=== PATIENT | male | born 1960 | race Caucasian/White ===

== ENCOUNTER 2018-01-27 17:13 | Emergency (ER) | payer BC ==
[2018-01-27 17:20] VITALS: RESP 18
[2018-01-27 17:52] LABS: Basophils % (A) 0 %; Eosinophils % (A) 1 %; HCT 46.1 % (39.0-53.0); HGB 15.5 gm/dL (13.0-17.5); Lymphocytes # (A) 1.4 k/uL (1.0-4.8); Lymphocytes % (A) 24 %; MCH 28.3 pg (25.0-35.0); MCHC 33.7 g/dL (31.0-37.0); MCV 84.1 fL (80.0-100.0); Mean Platelet Volume 6.9; Monocytes # (A) 0.3 k/uL (0-1.0); Monocytes % (A) 5 %; Neutrophils # (A) 4.1 k/uL (1.3-7.7); Neutrophils % (A) 69 %; Platelet Count 243 k/uL (150-450); RBC 5.49 m/uL (4.30-5.90); RDW 12.5 % (11.5-15.5); WBC 5.9 k/uL (3.8-10.6)
[2018-01-27 17:53] LABS: Partial Thromboplastin Time 22.6 sec (22.0-30.0)
[2018-01-27] MEDS ORDERED: RX INFO: IV CONTRAST WAS GIVEN 1 EACH MISC MISCELLANE PRN (17:55)
--- NOTE | 2018-01-27 17:55 | ED ---
General Adult HPI - General Chief complaint: Chest Pain Stated complaint: Chest Pain, High blood pressure Time Seen by Provider: 01/27/18 17:45 Source: patient, RN notes reviewed, old records reviewed Mode of arrival: wheelchair Limitations: no limitations - History of Present Illness Initial comments: This is a 57-year-old male to the ER for evaluation of chest pain. Patient's chest pain 1 week anterior chest pain. No history of heart disease. Patient has no recent travel history or sick contacts. No fevers. No cough or congestion. No significant shortness of breath currently. - Related Data Home Medications Medication Instructions Recorded Confirmed No Known Home Medications [No 01/27/18 01/27/18 Known Home Medications] Allergies Allergy/AdvReac Type Severity Reaction Status Date / Time No Known Allergies Allergy Verified 01/27/18 18:18 Review of Systems ROS Statement: Those systems with pertinent positive or pertinent negative responses have been documented in the HPI. ROS Other: All systems not noted in ROS Statement are negative. Past Medical History Past Medical History: Musculoskeletal Disorder Additional Past Medical History / Comment(s): BORDERLINE HYPERTENSION 140/80- NO MEDS. HAD "ASTHMA ATTACK"1994 NONE SINCE WAS TOLD HAD SARCODOSIS. HX DIVERTICULITIS- BURST 2009. HX KIDNEY STONES X 4 -LAST TIME 2006. RT SHOULDER PAIN- HARD TO LIFT ARMS ABOVE HEAD OR REACH BACK- CONSTANT PAIN- AFFECTS SLEEP ALSO History of Any Multi-Drug Resistant Organisms: None Reported Past Surgical History: Bowel Resection, Orthopedic Surgery Additional Past Surgical History / Comment(s): BOWEL RESECTION [id number] MONTHS LATER HAD REVERSAL DONE. ARTHROSCOPIC LEFT KNEE Past Anesthesia/Blood Transfusion Reactions: No Reported Reaction Past Psychological History: No Psychological Hx Reported Smoking Status: Never smoker Past Alcohol Use History: None Reported Past Drug Use History: None Reported - Past Family History Mother Family Medical History: Cancer Additional Family Medical History / Comment(s): LYMPHOMA General Exam Limitations: no limitations General appearance: alert, in no apparent distress Head exam: Present: atraumatic, normocephalic, normal inspection Eye exam: Present: normal appearance, PERRL, EOMI. Absent: scleral icterus, conjunctival injection, periorbital swelling ENT exam: Present: normal exam, mucous membranes moist Neck exam: Present: normal inspection. Absent: tenderness, meningismus, lymphadenopathy Respiratory exam: Present: normal lung sounds bilaterally. Absent: respiratory distress, wheezes, rales, rhonchi, stridor Cardiovascular Exam: Present: regular rate, normal rhythm, normal heart sounds. Absent: systolic murmur, diastolic murmur, rubs, gallop, clicks GI/Abdominal exam: Present: soft, normal bowel sounds. Absent: distended, tenderness, guarding, rebound, rigid Extremities exam: Present: normal inspection, full ROM, normal capillary refill. Absent: tenderness, pedal edema, joint swelling, calf tenderness Back exam: Present: normal inspection Neurological exam: Present: alert, oriented X3, CN II-XII intact Psychiatric exam: Present: normal affect, normal mood Skin exam: Present: warm, dry, intact, normal color. Absent: rash Course Vital Signs 01/27/18 01/27/18 01/27/18 17:16 18:09 19:08 Temperature 97.5 F L Pulse Rate 82 70 73 Respiratory 18 18 18 Rate Blood Pressure 184/94 165/79 146/86 O2 Sat by Pulse 96 97 99 Oximetry Medical Decision Making - Lab Data Result diagrams: 01/27/18 17:32 01/27/18 17:32 Lab Results 01/27/18 01/27/18 01/27/18 Range/Units 17:32 17:32 17:32 WBC 5.9 (3.8-10.6) k/uL RBC 5.49 (4.30-5.90) m/uL Hgb 15.5 (13.0-17.5) gm/dL Hct 46.1 (39.0-53.0) % MCV 84.1 (80.0-100.0) fL MCH 28.3 (25.0-35.0) pg MCHC 33.7 (31.0-37.0) g/dL RDW 12.5 (11.5-15.5) % Plt Count 243 (150-450) k/uL Neutrophils % 69 % Lymphocytes % 24 % Monocytes % 5 % Eosinophils % 1 % Basophils % 0 % Neutrophils # 4.1 (1.3-7.7) k/uL Lymphocytes # 1.4 (1.0-4.8) k/uL Monocytes # 0.3 (0-1.0) k/uL Eosinophils # 0.0 (0-0.7) k/uL Basophils # 0.0 (0-0.2) k/uL PT (9.0-12.0) sec INR (<1.2) APTT (22.0-30.0) sec Sodium 141 (137-145) mmol/L Potassium 4.4 (3.5-5.1) mmol/L Chloride 106 (98-107) mmol/L Carbon Dioxide 26 (22-30) mmol/L Anion Gap 9 mmol/L BUN 14 (9-20) mg/dL Creatinine 0.67 (0.66-1.25) mg/dL Est GFR (CKD-EPI)AfAm >90 (>60 ml/min/1.73 sqM) Est GFR (CKD-EPI)NonAf >90 (>60 ml/min/1.73 sqM) Glucose 135 H (74-99) mg/dL Calcium 9.6 (8.4-10.2) mg/dL Magnesium 2.2 (1.6-2.3) mg/dL Total Bilirubin 0.4 (0.2-1.3) mg/dL AST 19 (17-59) U/L ALT 31 (21-72) U/L Alkaline Phosphatase 97 (38-126) U/L Total Creatine Kinase 118 (55-170) U/L CK-MB (CK-2) 1.7 (0.0-2.4) ng/mL CK-MB (CK-2) Rel Index 1.4 Troponin I <0.012 (0.000-0.034) ng/mL Total Protein 6.8 (6.3-8.2) g/dL Albumin 4.1 (3.5-5.0) g/dL Lipase (23-300) U/L 01/27/18 01/27/18 Range/Units 17:32 17:32 WBC (3.8-10.6) k/uL RBC (4.30-5.90) m/uL Hgb (13.0-17.5) gm/dL Hct (39.0-53.0) % MCV (80.0-100.0) fL MCH (25.0-35.0) pg MCHC (31.0-37.0) g/dL RDW (11.5-15.5) % Plt Count (150-450) k/uL Neutrophils % % Lymphocytes % % Monocytes % % Eosinophils % % Basophils % % Neutrophils # (1.3-7.7) k/uL Lymphocytes # (1.0-4.8) k/uL Monocytes # (0-1.0) k/uL Eosinophils # (0-0.7) k/uL Basophils # (0-0.2) k/uL PT 10.0 (9.0-12.0) sec INR 1.0 (<1.2) APTT 22.6 (22.0-30.0) sec Sodium (137-145) mmol/L Potassium (3.5-5.1) mmol/L Chloride (98-107) mmol/L Carbon Dioxide (22-30) mmol/L Anion Gap mmol/L BUN (9-20) mg/dL Creatinine (0.66-1.25) mg/dL Est GFR (CKD-EPI)AfAm (>60 ml/min/1.73 sqM) Est GFR (CKD-EPI)NonAf (>60 ml/min/1.73 sqM) Glucose (74-99) mg/dL Calcium (8.4-10.2) mg/dL Magnesium (1.6-2.3) mg/dL Total Bilirubin (0.2-1.3) mg/dL AST (17-59) U/L ALT (21-72) U/L Alkaline Phosphatase (38-126) U/L Total Creatine Kinase (55-170) U/L CK-MB (CK-2) (0.0-2.4) ng/mL CK-MB (CK-2) Rel Index Troponin I (0.000-0.034) ng/mL Total Protein (6.3-8.2) g/dL Albumin (3.5-5.0) g/dL Lipase 140 (23-300) U/L Disposition Clinical Impression: Atypical chest pain, Chest pain, Anxiety, Hypertension Disposition: HOME SELF-CARE Condition: Good Instructions: Chest Pain (ED), Vertigo (ED), Hypertension (ED) Referrals: Elton Strickland MD [Primary Care Provider] - 1-2 days
[2018-01-27 18:03] LABS: ALT 31 U/L (21-72); AST 19 U/L (17-59); Albumin 4.1 g/dL (3.5-5.0); Alkaline Phosphatase 97 U/L (38-126); Anion Gap 9 mmol/L; Blood Urea Nitrogen 14 mg/dL (9-20); Calcium 9.6 mg/dL (8.4-10.2); Carbon Dioxide 26 mmol/L (22-30); Chloride 106 mmol/L (98-107); Creatine Kinase 118 U/L (55-170); Glucose 135 mg/dL (74-99); Potassium 4.4 mmol/L (3.5-5.1); Sodium 141 mmol/L (137-145); Total Bilirubin 0.4 mg/dL (0.2-1.3); Total Protein 6.8 g/dL (6.3-8.2)
[2018-01-27 18:14] LABS: Creatine Kinase MB 1.7 ng/mL (0.0-2.4); Troponin I <0.012 ng/mL (0.000-0.034)
--- NOTE | 2018-01-27 18:55 | CT ---
EXAMINATION TYPE: CT brain wo con DATE OF EXAM: 01/27/2018 HISTORY: Lightheaded. Headache per order. CT DLP: 1109 mGycm. Automated Exposure Control for Dose Reduction was Utilized. TECHNIQUE: CT scan of the head is performed without contrast. COMPARISON: None. FINDINGS: There is no acute intracranial hemorrhage or midline shift identified. Ventricles and sul ci are normal in size. The globes are intact and the visualized sinuses are clear. IMPRESSION: No acute intracranial hemorrhage or midline shift.
--- NOTE | 2018-01-27 18:58 | CT ---
EXAMINATION TYPE: CT angio chest DATE OF EXAM: 01/27/2018 COMPARISON: NONE HISTORY: Chest pain CT DLP: 692 mGycm. Automated Exposure Control for Dose Reduction was Utilized. CONTRAST: CTA scan of the thorax is performed with IV Contrast, patient injected with 100ml mL of Omnipaque 350 , pulmonary embolism protocol. MIP Images are created on CT scanner and reviewed. FINDINGS: LUNGS: Low lung volumes are present. There is dependent atelectasis in bilateral lower lobes. There i s no suspicious parenchymal nodule or mass identified bilaterally. No pleural effusion or pneumothora x is seen bilaterally. No concerning nodule or mass is present. Tracheobronchial tree is patent. MEDIASTINUM: There is satisfactory enhancement of the pulmonary artery and its branches, there is no CT evidence for pulmonary embolism. There are no greater than 1 cm hilar or mediastinal lymph nodes. No cardiomegaly or pericardial effusion is seen. OTHER: Small degree of bilateral gynecomastia is appreciated. Small stones are seen in the contracted gallbladder. IMPRESSION: No CT evidence for pulmonary embolism. Low lung volumes without suspicious acute pulmonar y process.
--- NOTE | 2018-01-27 18:58 | XR ---
EXAMINATION TYPE: XR chest 2V DATE OF EXAM: 01/27/2018 COMPARISON: Same day CTA chest study. HISTORY: Chest pain, history of hypertension TECHNIQUE: Frontal and lateral views of the chest are obtained. FINDINGS: Low lung volumes are present. There is no focal air space opacity, pleural effusion, or pn eumothorax seen. The cardiac silhouette size is within normal limits. The osseous structures are i ntact. IMPRESSION: No suspicious acute cardiopulmonary process.
[2018-01-27] MEDS ORDERED: MORPHINE SULFATE 4 MG/ML SYRINGE IVP STA (19:20)
[2018-01-27] MEDS ORDERED: KETOROLAC 30 MG/ML 1 ML VIAL IVP STA (19:20)
[2018-01-27 20:36] VITALS: BP 157/87; PULSE 64; TEMP 98.1
== END 2018-01-27 20:36 | disposition home or self-care (01) ==
LOC: EC 17:13
DX: R07.89 Other chest pain (principal); I10 Essential (primary) hypertension; F41.9 Anxiety disorder, unspecified; Z53.29 Procedure and treatment not carried out because of patient's decision for other reasons
CPT/HCPCS: 36415; 93005; 80053; 82550; 82553; 83690; 83735; 84484; 85025; 85610; 85730; 71046; 70450; 71275; 99285; Q9967

== ENCOUNTER 2019-09-12 06:54 | Day surgery (SDC) | payer BC ==
[2019-09-08 11:31] VITALS: BMI 31.4
[~2019-09-12 06:54] MED LIST: DEXAMETHASONE SOD PHOSPHATE 10 MG/ML 1 ML VIAL IV ONE; HEPARIN SODIUM,PORCINE 5,000 UNIT/ML 1 ML VIAL SQ ONE; HYDROmorphone 0.5 MG/0.5 ML SYRINGE IVP PRN; LACTATED RINGERS 1,000 ML IV SCH; LIDOCAINE 1% 20 ML VIAL (10MG/ML) FOR IV START INTRADERMA PRN; ONDANSETRON 4 MG/2 ML VIAL IVP ONE; SCOPOLAMINE 1.5MG/72HR PATCH TRANSDERM ONE
[2019-09-12] MEDS ORDERED: BUPIVACAINE (PF) 0.25% 30 ML VIAL SQ ONE (07:41)
[2019-09-12] MEDS ORDERED: NEOSTIGMINE 1 MG/ML 10 ML VIAL ONE (07:53)
[2019-09-12] MEDS ORDERED: ePHEDrine SULFATE/0.9% NACL/PF 50 MG/5 ML SYRINGE IV ONE (07:53)
[2019-09-12] MEDS ORDERED: SUCCINYLCHOLINE CHLORIDE 100 MG/5 ML SYR IV ONE (07:53)
[2019-09-12] MEDS ORDERED: GLYCOPYRROLATE 0.2 MG/ML 2 ML VIAL ONE (07:53)
[2019-09-12] MEDS ORDERED: MIDAZOLAM 2 MG/2 ML VIAL ONE (07:53)
[2019-09-12] MEDS ORDERED: ROCURONIUM BROMIDE 10 MG/ML 10 ML VIAL IV ONE (07:53)
[2019-09-12] MEDS ORDERED: PROPOFOL 10 MG/ML 20 ML VIAL IV ONE (07:53)
[2019-09-12] MEDS ORDERED: KETOROLAC 30 MG/ML 1 ML VIAL ONE (07:53)
[2019-09-12] MEDS ORDERED: HYDROmorphone (PF) 1 MG/ML ONE (07:53)
[2019-09-12] MEDS ORDERED: fentaNYL (PF) 50 MCG/ML 2 ML AMP ONE (07:53)
[2019-09-12] MEDS ORDERED: LIDOCAINE 1% INJ 10MG/ML (20 ML MDV) ONE (07:53)
--- NOTE | 2019-09-12 08:14 | P.GSHP ---
History of Present Illness H&P Date: 09/12/19 Chief Complaint: Right upper quadrant pain This a 58-year-old male who presents today for laparoscopic cholecystectomy. Patient complains of right quadrant pain. He was worked up found have gallstones. Past Medical History Past Medical History: Musculoskeletal Disorder Additional Past Medical History / Comment(s): HAD "ASTHMA ATTACK"1994 NONE SINCE WAS TOLD HAD SARCODOSIS. HX DIVERTICULITIS- BURST 2009. HX KIDNEY STONES X 4 - LAST TIME 2006 History of Any Multi-Drug Resistant Organisms: None Reported Past Surgical History: Bowel Resection, Orthopedic Surgery Additional Past Surgical History / Comment(s): BOWEL RESECTION [id number]-9 MONTHS LATER HAD REVERSAL DONE. ARTHROSCOPIC LEFT KNEE. RT SHOULDER SX. COLONOSCOPY Past Anesthesia/Blood Transfusion Reactions: No Reported Reaction Smoking Status: Never smoker - Past Family History Mother Family Medical History: Cancer Additional Family Medical History / Comment(s): LYMPHOMA Medications and Allergies Home Medications Medication Instructions Recorded Confirmed Type No Known Home Medications 09/08/19 09/12/19 History Allergies Allergy/AdvReac Type Severity Reaction Status Date / Time No Known Allergies Allergy Verified 09/12/19 07:09 Surgical - Exam Vital Signs Temp Pulse Resp BP Pulse Ox 97.8 F 79 16 167/96 96 09/12/19 07:05 09/12/19 07:05 09/12/19 07:05 09/12/19 07:05 09/12/19 07:05 - General well developed, well nourished, no distress - Eyes PERRL - ENT normal pinna - Neck no masses - Respiratory normal expansion - Cardiovascular Rhythm: regular - Abdomen Abdomen: soft, non tender Assessment and Plan Assessment: Cholelithiasis Right quadrant pain We'll perform laparoscopic cholecystectomy.
[2019-09-12] MEDS ORDERED: LACTATED RINGERS 1,000 ML IV ONE (08:21)
[2019-09-12 09:08] VITALS: TEMP 97.1
--- NOTE | 2019-09-12 09:13 | P.OP ---
Date of Procedure: 09/12/19 Preoperative Diagnosis: Cholelithiasis Postoperative Diagnosis: Cholelithiasis Extensive adhesions Procedure(s) Performed: Laparoscopic cholecystectomy Anesthesia: PATRICIA Surgeon: Elvin Ernandez Estimated Blood Loss (ml): 10 Pathology: other (Gallbladder) Condition: stable Disposition: PACU Description of Procedure: The patient's placed on the operating table in the supine position. He received general anesthesia. His abdomen was prepped and draped in usual sterile fashion. The patient a previous low anterior section and colostomy reversal. Patient had extensive scar in the midline. The scar extended presents today for just above the umbilicus. There appeared to be evidence of a incisional hernia. This point the Veress needles placed left upper quadrant and then using a 5 mm optical trocar. The peritoneal cavity is entered after adequate insufflation. Another 5 mm trochars placed in the left lateral position. The adhesions along her midline were visualized. Using the Harmonic scissors the lesions were lysed. The prostate 50 minutes of operative time used to lyse adhesions. Next, a 5 mm trochars placed at the umbilicus under direct visualization.. Following this the laparoscope was placed in the peritoneal cavity. The patient was placed in the head-up, right side up position and then a 5 mm trocar was placed in the right lateral and right subcostal position under direct visualization. A 8 mm trocar was placed in the epigastric position. The gallbladder was grasped in the fundus and infundibulum. Traction on the gallbladder was placed in the lateral and the cephalad positions. The triangle of Calot was visualized.. The cystic duct was bluntly dissected until the union of the cystic duct and common bile duct was seen. A critical view of safety was achieved. The cystic duct was then divided and sealed with the Harmonic scissors. A PDS Endoloop was then placed throughout the cystic duct stump. The cystic artery divided and sealed with the Harmonic scissors. The gallbladder was then removed from the liver bed using Harmonic scissors. The gallbladder was then extracted through the epigastric port site. Operative field was checked for any bleeding spots and Harmonic scissors was used to coagulate the liver bed. The abdomen was irrigated. The trocars were removed. The skin was closed using interrupted 3-0 Vicryl suture. Dermabond dressing were applied. The patient tolerated the procedure well.
[2019-09-12] MEDS ORDERED: HYDROcodone/APAP 5-325MG 1 EACH TAB PO ONE (11:00)
[2019-09-12 11:05] VITALS: PULSE 99; RESP 16
[2019-09-12 11:45] VITALS: BP 131/83
== END 2019-09-12 11:43 | disposition home or self-care (01) ==
LOC: OR 06:54
PROVIDERS: ATTEND Surgery
DX: K80.10 Calculus of gallbladder with chronic cholecystitis without obstruction (principal); K66.0 Peritoneal adhesions (postprocedural) (postinfection); K57.32 Diverticulitis of large intestine without perforation or abscess without bleeding; Z90.49 Acquired absence of other specified parts of digestive tract; Z87.442 Personal history of urinary calculi; Z85.79 Personal history of other malignant neoplasms of lymphoid, hematopoietic and related tissues
CPT/HCPCS: 88304; 47562; J2250; J1644; J1100; J2710; J0690; J2405; J2001; J3010; J1885; J1170; J0330; J2704

== ENCOUNTER → 2020-08-13 | Outpatient (CLI) | payer BC | END | disposition home or self-care (01) | LOC: LABPAT 14:19 | PROVIDERS: ATTEND Surgery | DX: Z01.818 Encounter for other preprocedural examination (principal); K43.2 Incisional hernia without obstruction or gangrene | CPT/HCPCS: 93005 ==

== ENCOUNTER 2020-08-17 05:51 | Day surgery (SDC) | payer BC ==
[2020-08-13 10:07] VITALS: BMI 31.4
[~2020-08-17 05:51] MED LIST changes: +ACETAMINOPHEN TAB 500 MG TAB PO ONE; -DEXAMETHASONE SOD PHOSPHATE 10 MG/ML 1 ML VIAL IV ONE; -HEPARIN SODIUM,PORCINE 5,000 UNIT/ML 1 ML VIAL SQ ONE; -HYDROmorphone 0.5 MG/0.5 ML SYRINGE IVP PRN; -LACTATED RINGERS 1,000 ML IV SCH; -LIDOCAINE 1% 20 ML VIAL (10MG/ML) FOR IV START INTRADERMA PRN; -ONDANSETRON 4 MG/2 ML VIAL IVP ONE; -SCOPOLAMINE 1.5MG/72HR PATCH TRANSDERM ONE
[2020-08-17] MEDS ORDERED: MIDAZOLAM 2 MG/2 ML VIAL IV PRN (06:00)
[2020-08-17] MEDS ORDERED: HYDROmorphone 0.5 MG/0.5 ML SYRINGE IVP PRN (06:00)
[2020-08-17] MEDS ORDERED: HEPARIN SODIUM,PORCINE 5,000 UNIT/ML 1 ML VIAL SQ ONE (06:00)
[2020-08-17] MEDS ORDERED: LIDOCAINE 1% (10MG/ML) FOR IV START INTRADERMA PRN (06:00)
[2020-08-17] MEDS ORDERED: DEXAMETHASONE SOD PHOSPHATE 10 MG/ML 1 ML VIAL IV ONE (06:00)
[2020-08-17] MEDS ORDERED: ONDANSETRON 4 MG/2 ML VIAL IVP ONE (06:00)
[2020-08-17] MEDS ORDERED: fentaNYL (PF) 50 MCG/ML 2 ML AMP IVP PRN (06:00)
[2020-08-17] MEDS: LACTATED RINGERS 1,000 ML IV SCH (06:56)
[2020-08-17] MEDS ORDERED: NEOSTIGMINE 1 MG/ML 10 ML VIAL ONE (07:48)
[2020-08-17] MEDS ORDERED: SUCCINYLCHOLINE CHLORIDE 100 MG/5 ML SYR IV ONE (07:48)
[2020-08-17] MEDS ORDERED: ROCURONIUM 10 MG/ML (5 ML VIAL) IV ONE (07:48)
[2020-08-17] MEDS ORDERED: MIDAZOLAM 2 MG/2 ML VIAL ONE (07:48)
[2020-08-17] MEDS ORDERED: PROPOFOL 10 MG/ML 20 ML VIAL IV ONE (07:48)
[2020-08-17] MEDS ORDERED: LIDOCAINE 1% INJ 10MG/ML (20 ML MDV) ONE (07:48)
[2020-08-17] MEDS ORDERED: GLYCOPYRROLATE 0.2 MG/ML 2 ML VIAL ONE (07:48)
[2020-08-17] MEDS ORDERED: fentaNYL (PF) 50 MCG/ML 2 ML AMP ONE (07:48)
[2020-08-17] MEDS ORDERED: LACTATED RINGERS 1,000 ML IV ONE ×2 (08:46→09:02)
[2020-08-17] MEDS ORDERED: PROMETHAZINE 25 MG TAB PO PRN (09:02)
[2020-08-17] MEDS ORDERED: ONDANSETRON 4 MG/2 ML VIAL IVP PRN (09:02)
--- NOTE | 2020-08-17 09:13 | P.GSHP ---
History of Present Illness H&P Date: 08/17/20 Chief Complaint: Incisional hernia This a 59-year-old male who presents today for open repair of incarcerated incisional hernia. Patient developed a tender mass along his midline scar. Past Medical History Past Medical History: Musculoskeletal Disorder Additional Past Medical History / Comment(s): HAD "ASTHMA ATTACK"1994 NONE SINCE WAS TOLD HAD SARCODOSIS. HX DIVERTICULITIS- BURST 2009. HX KIDNEY STONES X 4 - LAST TIME 2006 History of Any Multi-Drug Resistant Organisms: None Reported Past Surgical History: Bowel Resection, Cholecystectomy, Orthopedic Surgery Additional Past Surgical History / Comment(s): BOWEL RESECTION [id number]-2 MONTHS LATER HAD REVERSAL DONE. ARTHROSCOPIC LEFT KNEE. RT SHOULDER SX. COLONOSCOPY Past Anesthesia/Blood Transfusion Reactions: No Reported Reaction, Motion Sickness Smoking Status: Never smoker - Past Family History Mother Family Medical History: Cancer Additional Family Medical History / Comment(s): LYMPHOMA Medications and Allergies Home Medications Medication Instructions Recorded Confirmed Type Ascorbic Acid [Vitamin C] 500 mg PO DAILY 08/13/20 08/17/20 History Cholecalciferol [Vitamin D3 (25 1,000 unit PO DAILY 08/13/20 08/17/20 History Mcg = 1000 Iu)] [place]-3 Fatty Acids/Fish Oil [Fish 1 each PO DAILY 08/13/20 08/17/20 History Oil 1,000 mg Softgel] Acetaminophen Tab [Tylenol] 650 mg PO Q6HR tab 08/17/20 Rx Ibuprofen [Motrin] 600 mg PO Q6H #30 tab 08/17/20 Rx oxyCODONE HCL [OxyIR] 5 mg PO Q6H PRN #12 tab 08/17/20 Rx Allergies Allergy/AdvReac Type Severity Reaction Status Date / Time No Known Allergies Allergy Verified 08/13/20 09:56 Surgical - Exam Vital Signs Temp Pulse Resp BP Pulse Ox 97.7 F 71 16 137/84 97 08/17/20 06:55 08/17/20 06:55 08/17/20 06:55 08/17/20 06:55 08/17/20 06:55 - General well developed, well nourished, no distress - Eyes PERRL - ENT normal pinna - Neck no masses - Respiratory normal expansion - Cardiovascular Rhythm: regular - Abdomen Abdomen: soft Hernia: incisional (5 cm incarcerated incisional hernia) Assessment and Plan Assessment: Incarcerated incisional hernia. We'll perform open repair.
--- NOTE | 2020-08-17 09:14 | P.OP ---
Date of Procedure: 08/17/20 Preoperative Diagnosis: Incarcerated incisional hernia Postoperative Diagnosis: Incarcerated incisional hernia Procedure(s) Performed: Open repair of incarcerated incisional hernia Partial omentectomy Anesthesia: PATRICIA Surgeon: Elvin Ernandez Estimated Blood Loss (ml): 25 Pathology: other (Omentum, hernia sac) Condition: stable Disposition: PACU Description of Procedure: Patient's placed on the operating table in the supine position. He received general anesthesia. His and draped sterile fashion. The abdomen was entered through a midline incision. Electrocautery the subcutaneous tissues were divided. The hernia was dissected free from the incision. The hernia sac was then opened and then the incarcerated omentum was transected. This was sent to pathology. The fascial defect was then closed using #1 the strata fixed suture. A Prolene mesh was placed over top apparent secured with a Steri-Strip tacker. A NICKOLAS drains placed over top the mesh and brought through separate stab incision Jose's fascia close [place]. Skin was closed geovanny. Patient top she will was sent to recovery room stable condition.
[2020-08-17 10:28] VITALS: RESP 18
[2020-08-17] MEDS: ACETAMINOPHEN TAB 325 MG TAB PO SCH ×3 (11:49→23:43)
[2020-08-17] MEDS: IBUPROFEN 600 MG TAB PO SCH ×2 (15:30→21:47)
[2020-08-18] MEDS: IBUPROFEN 600 MG TAB PO SCH ×2 (03:02→08:05)
[2020-08-18 05:33] VITALS: BP 150/92; PULSE 78; TEMP 97.7
[2020-08-18] MEDS: ACETAMINOPHEN TAB 325 MG TAB PO SCH ×2 (05:52→11:45)
[2020-08-18] MEDS: LACTATED RINGERS 1,000 ML IV SCH (05:55)
--- NOTE | 2020-08-18 12:13 | P.DS ---
Providers Expected date of discharge: 08/18/20 Attending physician: Elvin Ernandez Primary care physician: Peter Bent Brigham Hospital Course: Patient underwent elective repair incisional hernia. Doing well today. Tolerating diet. Pain is controlled. We'll discharge. Follow-up one week. Plan - Discharge Summary Discharge Rx Participant: No New Discharge Prescriptions: New Ibuprofen [Motrin] 600 mg PO Q6H #30 tab oxyCODONE HCL [OxyIR] 5 mg PO Q6H PRN #12 tab PRN Reason: Breakthrough Pain Acetaminophen Tab [Tylenol] 650 mg PO Q6HR tab Continue [place]-3 Fatty Acids/Fish Oil [Fish Oil 1,000 mg Softgel] 1 each PO DAILY Cholecalciferol [Vitamin D3 (25 Mcg = 1000 Iu)] 1,000 unit PO DAILY Ascorbic Acid [Vitamin C] 500 mg PO DAILY Discharge Medication List Ascorbic Acid [Vitamin C] 500 mg PO DAILY 08/13/20 [History] Cholecalciferol [Vitamin D3 (25 Mcg = 1000 Iu)] 1,000 unit PO DAILY 08/13/20 [History] [place]-3 Fatty Acids/Fish Oil [Fish Oil 1,000 mg Softgel] 1 each PO DAILY 08/13/20 [History] Acetaminophen Tab [Tylenol] 650 mg PO Q6HR tab 08/17/20 [Rx] Ibuprofen [Motrin] 600 mg PO Q6H #30 tab 08/17/20 [Rx] oxyCODONE HCL [OxyIR] 5 mg PO Q6H PRN #12 tab 08/17/20 [Rx] Follow up Appointment(s)/Referral(s): Elvin Ernandez MD [STAFF PHYSICIAN] - 1 Week Discharge Disposition: HOME SELF-CARE
== END 2020-08-18 13:30 | disposition home or self-care (01) ==
LOC: OR 05:51 → 6NMEDSUR 09:51 → OR 08-18 13:30
PROVIDERS: ATTEND Surgery
DX: K43.0 Incisional hernia with obstruction, without gangrene (principal); J45.909 Unspecified asthma, uncomplicated; Z87.442 Personal history of urinary calculi; Z79.1 Long term (current) use of non-steroidal anti-inflammatories (NSAID); Z79.899 Other long term (current) drug therapy; Z90.49 Acquired absence of other specified parts of digestive tract; Z87.19 Personal history of other diseases of the digestive system; Z98.890 Other specified postprocedural states; Z80.7 Family history of other malignant neoplasms of lymphoid, hematopoietic and related tissues
CPT/HCPCS: 49561; 49568; 94760; 88302; C1781; J2250; J1100; J2710; J0690; J2405; J2001; J3010; J0330; J2704; J1170

== ENCOUNTER → 2021-05-16 | Outpatient (CLI) | payer BC ==
--- NOTE | 2021-05-16 12:04 | MR ---
EXAMINATION TYPE: MR knee LT wo con DATE OF EXAM: 05/16/2021 COMPARISON: None HISTORY: Left knee pain and swelling for 1 month. TECHNIQUE: Multiplanar, multisequence imaging of the left knee is performed without IV contrast. FINDINGS: MEDIAL MENISCUS: There is an oblique tear of the posterior horn and body of the medial meniscus. LATERAL MENISCUS: Anterior and posterior horns are intact without tear. CRUCIATE LIGAMENTS: The anterior and posterior cruciate ligaments are intact and unremarkable. COLLATERAL LIGAMENTS: The medial collateral ligament and lateral collateral ligament complex are inta ct and unremarkable. EXTENSOR MECHANISM: Visualized quadriceps and patellar tendons are intact. EFFUSION: There is a small knee joint effusion. POPLITEAL CYST: There is a tiny Jefferson's cyst. CARTILAGE: There are partial-thickness articular cartilage defects of the medial femoral condyle and medial and lateral tibial plateaus. There are full-thickness articular cartilage defects of the media l facet of the patella. BONE MARROW SIGNAL: No focal abnormal marrow signal is appreciated. OTHER: No additional significant abnormality is appreciated. IMPRESSION: 1. Oblique tear of the posterior horn and body of the medial meniscus. 2. Tricompartmental articular cartilage defects. 3. Knee joint effusion. 4. Tiny Jefferson's cyst.
== END | disposition home or self-care (01) ==
LOC: RADMRIMAIN 10:08
PROVIDERS: ATTEND Orthopaedic Surgery
DX: M23.322 Other meniscus derangements, posterior horn of medial meniscus, left knee (principal); M71.22 Synovial cyst of popliteal space [Baker], left knee; M24.152 Other articular cartilage disorders, left hip

== ENCOUNTER → 2021-06-25 | Outpatient (CLI) | payer BC ==
[2021-06-25 09:09] LABS: Potassium 4.9 mmol/L (3.5-5.1)
[2021-06-25 09:30] LABS: Basophils % (A) 1 %; Eosinophils # (A) 0.1 k/uL (0-0.7); Eosinophils % (A) 1 %; HCT 49.4 % (39.0-53.0); HGB 16.6 gm/dL (13.0-17.5); Lymphocytes # (A) 1.2 k/uL (1.0-4.8); Lymphocytes % (A) 22 %; MCH 29.9 pg (25.0-35.0); MCHC 33.6 g/dL (31.0-37.0); MCV 89.2 fL (80.0-100.0); Mean Platelet Volume 7.6; Monocytes # (A) 0.3 k/uL (0-1.0); Monocytes % (A) 5 %; Neutrophils # (A) 3.8 k/uL (1.3-7.7); Neutrophils % (A) 69 %; Platelet Count 207 k/uL (150-450); RBC 5.54 m/uL (4.30-5.90); RDW 12.6 % (11.5-15.5); WBC 5.4 k/uL (3.8-10.6)
== END | disposition home or self-care (01) ==
LOC: LABPAT 07:08
PROVIDERS: ATTEND Orthopaedic Surgery
DX: Z01.812 Encounter for preprocedural laboratory examination (principal); M23.92 Unspecified internal derangement of left knee
CPT/HCPCS: 36415; 80051; 85025

== ENCOUNTER 2021-07-05 08:07 | Day surgery (SDC) | payer BC ==
[2021-07-03 14:08] VITALS: BMI 32.3
--- NOTE | 2021-07-04 22:13 | HP ---
HISTORY AND PHYSICAL CHIEF COMPLAINT: Left knee pain. HISTORY OF PRESENT ILLNESS: The patient is a 60-year-old male right who presents with left knee pain that began in March of 2021. He cannot recall a specific injury, but thinks he may have twisted it. He notes medial pain increases with walking along with intermittent locking and swelling. He has tried medications in addition to an injection with only partial temporary relief. He notes he has been limping recently. PAST MEDICAL HISTORY: Significant for hypertension. PAST SURGICAL HISTORY: Significant for hernia repair, bilateral knee surgery and right knee arthroscopy. CURRENT ALLERGIES: Advil. ALLERGIES: He denies drug allergies. FAMILY HISTORY: Negative. SOCIAL HISTORY: Negative for current tobacco or alcohol use. REVIEW OF SYSTEMS: Sixteen-point review of systems is otherwise reviewed and is noncontributory. PHYSICAL EXAMINATION: On examination, the patient is approximately 5 foot 6, 200 pounds of endomorphic habitus. HEENT exam is nonfocal. NECK is supple. He has painless passive motion of the left hip. Straight leg raise is negative. Active motion left knee is -8 to 110 degrees of flexion. He has mild effusion. He is tender about the medial joint line. Collaterals are stable, Joe is negative, José Miguel's elicits medial pain. His distal neurovascular exam appears intact in the left lower extremity. MRI report left knee showed evidence of a posterior tear of the medial meniscus along with some cartilage defect involving the medial patellar facet, medial femoral condyle. IMPRESSION: Left knee internal derangement with symptomatic medial meniscal tear. RECOMMENDATIONS: I talked to the patient at length regarding his condition along with treatment options. At this point, he remains symptomatic despite conservative measures, having pain and mechanical symptoms. After thorough discussion, he opts to proceed with surgery. We will plan to proceed with arthroscopic evaluation, probable partial medial meniscectomy. We will likely perform that as an outpatient procedure. Risks and benefits were discussed at length in layman's terms. MMODL / IJN: [id number] /
[~2021-07-05 08:07] MED LIST changes: -ACETAMINOPHEN TAB 500 MG TAB PO ONE; +DEXAMETHASONE SOD PHOSPHATE 4 MG/ML 1 ML VIAL IV ONE; +HYDROmorphone 0.5 MG/0.5 ML SYRINGE IVP PRN; +LACTATED RINGERS 1,000 ML IV SCH; +LIDOCAINE 1% (10MG/ML) FOR IV START INTRADERMA PRN; +ONDANSETRON 4 MG/2 ML VIAL IVP PRN
[2021-07-05] MEDS ORDERED: SCOPOLAMINE 1.5MG/72HR PATCH TRANSDERM ONE (08:33)
[2021-07-05] MEDS ORDERED: ONDANSETRON 4 MG/2 ML VIAL ONE (08:37)
[2021-07-05] MEDS ORDERED: KETAMINE 10 MG/ML 20 ML VIAL ONE (09:50)
[2021-07-05] MEDS ORDERED: MIDAZOLAM 2 MG/2 ML VIAL ONE (09:50)
[2021-07-05] MEDS ORDERED: LIDOCAINE 1% INJ 10MG/ML (20 ML MDV) ONE (09:50)
[2021-07-05] MEDS ORDERED: fentaNYL (PF) 50 MCG/ML 2 ML AMP ONE (09:50)
[2021-07-05] MEDS ORDERED: PROPOFOL 10 MG/ML 20 ML VIAL IV ONE (09:50)
--- NOTE | 2021-07-05 10:40 | P.OP ---
Date of Procedure: 07/05/21 Preoperative Diagnosis: Left knee symptomatic medial meniscal tear Postoperative Diagnosis: Same in addition to grade 3 chondral injury distal medial femoral condyle Procedure(s) Performed: Left knee arthroscopic partial medial meniscectomy/medial femoral chondrectomy Anesthesia: PATRICIA Surgeon: Leopoldo Carbajal Estimated Blood Loss (ml): 10 Pathology: none sent Condition: stable Disposition: PACU Indications for Procedure: The patient's 60-year-old male who presents with persistent/progressive left knee pain and mechanical symptoms despite conservative measures. A discussion of the risks and benefits of operative intervention versus continued conservative measures was made with the patient. He opted to proceed with surgery. Operative risks to include infection, neurovascular injury, development of blood clots, possible incomplete resolution of symptoms, possible worsening symptoms and need for subsequent procedures was discussed. Informed consent was obtained. Operative Findings: As below Description of Procedure: The patient was brought to the operating room, and after induction of general anesthesia examined the left knee. Collaterals were stable, Joe was negative, and posterior drawer was negative. The left lower extremity was prepped and draped in a normal fashion. A superior lateral portal was made through a 3 mm skin incision superior and lateral to the patella. This was used for outflow. A lateral portal was made through a 5 mm vertical skin incision lateral to the patella tendon above the joint line. Diagnostic arthroscopy was performed. On inspection of the medial compartment, a complex tear involving the middle to posterior one third of the medial meniscus was noted. This was debrided back to stable base with straight baskets and a motorized shaver. The remaining medial meniscus was stable and intact. A grade 3 chondral injury involving the distal lateral portion medial femoral condyle was noted with a small loose chondral fragment. This was debrided back to a stable base with a motorized shaver. On inspection of the notch, the anterior cruciate ligament appeared to be intact. On inspection of the lateral compartment no significant meniscal/cartilage pathology was noted. On inspection of the patellofemoral articulation, there was mild degenerative changes however no loose chondral fragments. The gutters were clear debris. The knee was then thoroughly irrigated. The portals were closed with Steri-Strips. A sterile dressing was applied in addition to a compression stocking. The patient was awoken from general anesthesia and transferred to recovery room in good condition. Blood loss was estimated at 10 mL. No complications were incurred.
[2021-07-05 10:50] VITALS: TEMP 97.8
[2021-07-05 11:00] VITALS: RESP 16
[2021-07-05 11:36] VITALS: BP 150/89; PULSE 92
[2021-07-05] MEDS ORDERED: HYDROcodone/APAP 5-325MG 1 EACH TAB ONE (11:40)
[2021-07-05] MEDS ORDERED: HYDROcodone/APAP 5-325MG 1 EACH TAB PO ONE (11:40)
== END 2021-07-05 12:05 | disposition home or self-care (01) ==
LOC: OR 08:07
PROVIDERS: ATTEND Orthopaedic Surgery
DX: S83.242A Other tear of medial meniscus, current injury, left knee, initial encounter (principal); J45.909 Unspecified asthma, uncomplicated; D86.9 Sarcoidosis, unspecified; I10 Essential (primary) hypertension; Z88.6 Allergy status to analgesic agent
CPT/HCPCS: 29881; J2250; J1100; J0690; J2405; J2001; J3010; J2704

== ENCOUNTER → 2021-11-28 | Outpatient (CLI) | payer OTHER ==
--- NOTE | 2021-11-28 15:30 | XR ---
EXAMINATION TYPE: XR hand complete LT DATE OF EXAM: 11/28/2021 COMPARISON: NONE HISTORY: 61-year-old male left ring finger sprain, pain TECHNIQUE: 3 views FINDINGS: Moderate to severe degenerative change first CMC joint and triscaphe joint. Large corticate d bone fragment involving the ulnar styloid process compatible with sequela of old injury. No acute f racture, subluxation, or dislocation seen. IMPRESSION: 1. 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 2. No acute osseous abnormality seen.
== END | disposition home or self-care (01) ==
LOC: RADXRMAIN 15:00
PROVIDERS: ATTEND Emergency Medicine
DX: S52.612A Displaced fracture of left ulna styloid process, initial encounter for closed fracture (principal); M19.042 Primary osteoarthritis, left hand; X58.XXXA Exposure to other specified factors, initial encounter

== ENCOUNTER → 2022-01-01 | Outpatient (CLI) | payer OTHER ==
--- NOTE | 2022-01-02 04:02 | MR ---
EXAMINATION TYPE: MR hand LT wo con DATE OF EXAM: 01/01/2022 COMPARISON: None HISTORY: Lt Ring Finger is locked in bent position x1 month Multiplanar multiecho imaging of the left hand without contrast. There is flexion deformity of the PIP joint of the ring finger. I see no fracture nor dislocation. Sonali int spaces are fairly normal. There is no evidence of focal bone destruction. There is anterior displ acement of the flexor tendon of the ring finger at the PIP joint. There appears to be tear of the fle xor tendon of the ring finger at the attachment on the base of the middle phalanx. The carpal bones are intact. There is some narrowing and minor spurring at the first carpometacarpal joint. The IP joint spaces are fairly normal. I see no focal bone destruction. IMPRESSION: Flexion deformity of the ring finger with evidence of a tear of the flexor tendon at the attachment o n the base of the middle phalanx of the ring finger. Abnormal anterior displacement of the flexor ten don.
== END | disposition home or self-care (01) ==
LOC: RADMRIMAIN 06:45
PROVIDERS: ATTEND Orthopaedic Surgery Hand Surgery
DX: M21.242 Flexion deformity, left finger joints (principal); S66.115A Strain of flexor muscle, fascia and tendon of left ring finger at wrist and hand level, initial encounter; X58.XXXA Exposure to other specified factors, initial encounter

== ENCOUNTER → 2022-01-11 | Outpatient (CLI) | payer BC ==
[2022-01-11 16:54] LABS: African American GFR (CKD) 107.2 (60.0-200.0); BUN/Creat Ratio 19.67 Ratio (12.00-20.00); Basophils # (A) 0.02 X 10*3/uL (0.00-0.10); Basophils % (A) 0.4 %; Blood Urea Nitrogen 17.7 mg/dL (9.0-27.0); Calcium 9.6 mg/dL (8.7-10.3); Eosinophils # (A) 0.01 X 10*3/uL (0.04-0.35); Eosinophils % (A) 0.2 %; HCT 49.2 % (39.6-50.0); HGB 16.2 g/dL (13.0-17.0); Immature Grans, Automated 0.4 %; Lymphocytes # (A) 0.84 X 10*3/uL (0.90-5.00); Lymphocytes % (A) 16.2 %; MCH 28.9 pg (27.0-32.0); MCHC 32.9 g/dL (32.0-37.0); MCV 87.7 fL (80.0-97.0); Mean Platelet Volume 10.4 fL (9.5-12.2); Monocytes # (A) 0.34 X 10*3/uL (0.20-1.00); Monocytes % (A) 6.5 %; NRBC Per 100 WBC 0 /100 WBCS (0.0-0.0); Neutrophils # (A) 3.97 X 10*3/uL (1.80-7.70); Neutrophils % (A) 76.3 %; Non-African American GFR(CKD) 92.5 (60.0-200.0); Platelet Count 212 X 10*3/uL (140-440); Potassium 4.3 mmol/L (3.5-5.5); RBC 5.61 X 10*6/uL (4.40-5.60); RDW 12.5 % (11.5-14.5)
== END | disposition home or self-care (01) ==
LOC: LABPAT 10:03
PROVIDERS: ATTEND Orthopaedic Surgery Hand Surgery
DX: Z01.812 Encounter for preprocedural laboratory examination (principal); S66.124A Laceration of flexor muscle, fascia and tendon of right ring finger at wrist and hand level, initial encounter; Y99.9 Unspecified external cause status
CPT/HCPCS: 80048; 85025; 93005

== ENCOUNTER 2022-01-15 09:00 | Day surgery (SDC) | payer BC, OTHER ==
[2022-01-13 18:11] VITALS: BMI 31.3
--- NOTE | 2022-01-14 13:29 | P.HPOR ---
History of Present Illness H&P Date: 01/14/22 Chief Complaint: Left ring finger flexor tendon rupture Subjective: This is a 61 year old male that presents today for follow up evaluation and MRI results regarding a right ring finger injury that occurred at work. Patient was pushing a heaving object at work when he felt a pop and had mild pain and swelling of the right ring finger. He continued to work with the hand and presents today with a main complaint of the inability to fully extend the fin huma, specifically at the PIP joint. He denies any prior injury or pain to this hand in the past. He denies any paresthesias. He was never immobilized or placed in any type of splint. Physical Examination: LUE: AIN/PIN/Radial/Ulnar/Median motor intact. Radial/Ulnar/Median SILT. 2+/4 Radial/Ulnar pulses palpated. 5/5 APB, 5/5 FDI. Negative Finkelsteins, negative CMC grind, negative Durkan's compression. LRF PIP joint held in 50 degrees of flexion, unable to be passively corrected beyond 50 degrees of extension with MCP joints in flexion or extension. DIP joint and MCP joints supple. NTTP over PIP joint with mild swelling. Negative Elsons test. NTTP over volar plate. No palpable chords in palm consistent with Dupuytren's. NTTP over A1 vega with no locking or catching appreciable with flexion. Imaging: MRI of the left hand demonstrates rupture of the left ring finger FDS tendons with anterior translation of the FDP tendon, possibly concerning for vega rupture in addition to FDS tendon rupture. Impression: 1.) Left ring finger PIP contracture. 2.) Left ring finger FDS tendon rupture with possible A2/A3 vega ruptures. Plan: Diagnosis and treatment options were discussed with the patient. I recommend surgical exploration of his injury. We discussed the possibility of intra- operative procedures including FDS slip excision, capsulotomy, possible vega reconstruction and exploration of PIP joint to determine if any tissue interposition is present causing the irreducible flexion contracture and any other indicated procedures and he was agreeable with this plan. Labs/EKG will be ordered an he will be scheduled for outpatient surgery in the near future. He will likely be off 2-4 weeks of any work that involves using the left hand depending on intra-operative findings. -Chris Guo DO Orthopedic Hand/Upper Extremity Surgeon Past Medical History Past Medical History: Musculoskeletal Disorder, Respiratory Disorder Additional Past Medical History / Comment(s): Had "asthma attack" 1994, none since, told had sarcoidosis; had collapsed lung during biopsy. Borderline high blood pressure. Hx diverticulitis, burst 2009; kidney stones x4, last 2006. Lt ring finger prob History of Any Multi-Drug Resistant Organisms: None Reported Past Surgical History: Bowel Resection, Cholecystectomy, Hernia Repair, Orthopedic Surgery Additional Past Surgical History / Comment(s): BOWEL RESECTION [id number]-1 MONTHS LATER HAD REVERSAL DONE. ARTHROSCOPIC bilat Knees. RT SHOULDER SX. Hernia w/ mesh abd. COLONOSCOPY Past Anesthesia/Blood Transfusion Reactions: No Reported Reaction Smoking Status: Never smoker - Past Family History Mother Family Medical History: Cancer Additional Family Medical History / Comment(s): LYMPHOMA Sister(s) Family Medical History: Deep Vein Thrombosis (DVT) Medications and Allergies Home Medications Medication Instructions Recorded Confirmed Type Ascorbic Acid [Vitamin C] 500 mg PO DAILY 08/13/20 01/13/22 History Cholecalciferol [Vitamin D3 (25 1,000 unit PO DAILY 08/13/20 01/13/22 History Mcg = 1000 Iu)] [place]-3 Fatty Acids/Fish Oil [Fish 1 each PO DAILY 08/13/20 01/13/22 History Oil 1,000 mg Softgel] Acetaminophen Tab [Tylenol] 650 mg PO Q6HR tab 08/17/20 01/13/22 Rx Multivitamins, Thera [Multivitamin 1 tab PO DAILY 07/03/21 01/13/22 History (formulary)] Naproxen Sodium [Aleve] 220 mg PO DAILY PRN 07/03/21 01/13/22 History Allergies Allergy/AdvReac Type Severity Reaction Status Date / Time No Known Allergies Allergy Verified 01/13/22 17:52 Physical Examination Osteopathic Statement: *. No significant issues noted on an osteopathic structural exam other than those noted in the History and Physical/Consult.
[~2022-01-15 09:00] MED LIST changes: +ONDANSETRON 4 MG/2 ML VIAL IVP ONE; -ONDANSETRON 4 MG/2 ML VIAL IVP PRN; +SCOPOLAMINE 1.5MG/72HR PATCH TRANSDERM ONE
[2022-01-15] MEDS ORDERED: PHENYLEPHRINE-0.9% NACL SYG 1,000 MCG/10 ML SYRINGE ONE (10:20)
[2022-01-15] MEDS ORDERED: PROPOFOL 10 MG/ML 20 ML VIAL IV ONE (10:20)
[2022-01-15] MEDS ORDERED: fentaNYL (PF) 50 MCG/ML 2 ML AMP ONE (10:20)
[2022-01-15] MEDS ORDERED: MIDAZOLAM 2 MG/2 ML VIAL ONE (10:20)
[2022-01-15] MEDS ORDERED: HYDROmorphone (PF) 1 MG/ML ONE (10:20)
[2022-01-15] MEDS ORDERED: LIDOCAINE 1% INJ 10MG/ML (20 ML MDV) ONE (10:20)
[2022-01-15] MEDS ORDERED: BUPIVACAINE (PF) 0.25% 30 ML VIAL SQ ONE ×2 (10:52→11:29)
[2022-01-15 11:48] VITALS: TEMP 98.2
[2022-01-15] MEDS ORDERED: KETOROLAC 15 MG/ML 1 ML VIAL IVP ONE (12:08)
[2022-01-15 12:51] VITALS: RESP 18
[2022-01-15 13:07] VITALS: BP 124/77; PULSE 81
--- NOTE | 2022-01-16 08:02 | P.OP ---
Date of Procedure: 01/15/22 Preoperative Diagnosis: 1.) Left ring finger PIP flexion contracture 2.) Left ring finger FDS tendon rupture Postoperative Diagnosis: 1.) Left ring finger PIP flexion contracture 2.) Left ring finger FDS tendon rupture Procedure(s) Performed: 1.) Left ring finger PIP joint capsulotomy. (38641) 2.) Left ring finger flexor tendon tenolysis, simple at level of finger. ([id number]) 3.) Left ring finger FDS tendon excision, finger.([id number] Anesthesia: GETA Surgeon: Chris Guo Zumba Instructor #1: Bud Berrios Estimated Blood Loss (ml): 0 Pathology: none sent Condition: stable Disposition: PACU Description of Procedure: This is a 61 year old male who presented with a left ring finger injury which resulted in a fixed left ring finger PIP flexion contracture. MRI was ordered which confirmed FDS tendon ruptures with an intact FDP to the left ring finger. He presents today for surgical exploration with possible contracture release/FDS tendon excision. Risks and benefits of surgery were discussed with the patient including bleeding, recurrence, stiffness, damage to surrounding tissue, infection, need for further surgery as well as risks of anesthesia including pulmonary embolism and even and the patient wished to proceed with surgical intervention. The patient was seen in the pre-operative area by myself. Consent and H&P were completed and updated. The correct extremity was marked in the pre-operative area by myself and all other questions were answered. Operative Narrative: The patient was brought to the operating room by the department of anesthesia. They remained on the portable stretcher and a rolling hand table was brought to the side of the operative extremity. Pre-operative time out was performed indicating the correct patient, procedure and laterality. All in the room agreed. Pre-operative antibiotics were given prior to skin incision. The patient was then drifted off to sleep by the department of anesthesia. A nonsterile tourniquet was then applied to the operative extremity and the left upper extremity was then prepped and draped in normal sterile fashion. The operative extremity was the exsanguinated with an esmarch bandage and the tourniquet was inflated to 250mmHg. A Bandar type incision was made on the volar aspect of the left ring finger from the DIP joint flexion crease to the level of the A1 vega. Blunt dissection was taken down through soft tissues down to the flexor tendon sheath. The A1 vega was identified and released. Both the FDP and FDS tendons were present in the flexor tendon sheath at this level, however extension of the finger was not able to be achieved after A1 vega release. Upon further dissection the A2 vega appeared to be intact, the proximal half of the A4 vega appeared to be ruptured and scarred. The A3 vega was longitudinally split with a 15 blade scalpel to entire the flexor tendon sheath. The FDP tendon was found to be intact in it's entirety. Both the radial and ulnar FDS slips were found to be ruptured off of their insertion at the middle phalanx and were extensively scarred down to the volar plate of the PIP joint. Tenolysis was performed to separate the adhesions between the intact FDP tendon and ruptured FDS slips. Both slips of the ruptured FDS tendons were excised sharply under tension. After FDS excision the finger was only slightly improved in it's fixed flexed posture. Capsulotomy of PIP joint was then performed and both the radial and ulnar checkrein ligaments were sharpley incised. Manipulation of the finger was then performed and release of the contracture was appreciated. Full extension of the PIP joint was now achieved and FDP tendon was still intact with good vega coverage at the A2 and distal half of the A4 pulleys. The wrist was then flexed and extended and normal tenodesis effect was appreciated. The wound was then irrigated with sterile saline. Skin closure was perfomed with several interrupted 4-0 nylon sutures. Digital block was performed with 10cc of 0.5% bupivicaine. Ulnar gutter splint with the PIP joint held in extension was applied. Tourniquet was let down and all digits had good perfusion. The patient was then woken by the department of anesthesia and transferred to PACU in stable condition. Chris Guo D.O. Orthopedic Hand/Upper Extremity Surgeon
== END 2022-01-15 13:45 | disposition home or self-care (01) ==
LOC: OR 09:00
PROVIDERS: ATTEND Orthopaedic Surgery Hand Surgery
DX: S56.116A Strain of flexor muscle, fascia and tendon of left ring finger at forearm level, initial encounter (principal); M62.442 Contracture of muscle, left hand; X50.9XXA Other and unspecified overexertion or strenuous movements or postures, initial encounter; D86.9 Sarcoidosis, unspecified; R03.0 Elevated blood-pressure reading, without diagnosis of hypertension; Z87.19 Personal history of other diseases of the digestive system; Z87.442 Personal history of urinary calculi; Z90.49 Acquired absence of other specified parts of digestive tract; Z98.890 Other specified postprocedural states; Z80.7 Family history of other malignant neoplasms of lymphoid, hematopoietic and related tissues; Z82.49 Family history of ischemic heart disease and other diseases of the circulatory system; Z79.899 Other long term (current) drug therapy; E66.9 Obesity, unspecified; Z68.31 Body mass index [BMI] 31.0-31.9, adult
CPT/HCPCS: 26525; 26180; 25295; J2250; J1100; J0690; J2405; J2001; J3010; J1170 ×2; J1885; J2370; J2704